=== PATIENT | male | born 1955 | race Caucasian/White ===

== ENCOUNTER → 2016-07-13 | Day surgery (SDC) | payer OTHER ==
[~2016-07-13] MED LIST: ADVIL200 M2 PO; ATORVASTATIN CA40 MG PO; NORVASC10 MG PO
--- NOTE | ~2016-07-13 | OR ---
Unit #: [id number] #: [id number] Patient: LEYLA SCHMID [id number] [address] [place], [place] [address] [id number] O MR#: [id number] NAME: LEYLA SCHMID. ROOM: Date of Procedure: 07/13/2016 Admission Date: 07/13/2016 Surgeon: Miguel Egan M.D. : 1955 Attending Physician: Miguel Egan M.D. Primary Care Physician: Melissa Perry A.P.R.N. OPERATIVE REPORT PREOPERATIVE DIAGNOSIS Colorectal cancer screening in an average-risk patient. PROCEDURES PERFORMED Colonoscopy and polypectomy. POSTOPERATIVE DIAGNOSES 1. The patient had one pedunculated and one sessile polyp in the sigmoid colon. Both were removed using snare cautery polypectomy. They were 8 mm to a centimeter each. 2. Mild sigmoid and descending colon diverticulosis. 3. Rest of the examination up to cecum was normal. The quality of the prep was excellent. RECOMMENDATIONS Follow up the results of polyp histology and consider repeat colonoscopy in 5 years. SEDATION USED MAC. DESCRIPTION OF PROCEDURE Following detailed explanation of the potential risks and complications of a colonoscopy, namely perforation, bleeding, and complication related to sedation, the patient was brought to GI lab and laid in the left lateral decubitus position. A digital rectal examination was performed, which was normal. Lubricated tip of the Olympus video colonoscope was inserted through the anus and advanced under direct vision. The scope was advanced past rectosigmoid into descending colon. Scant small diverticula were noted in this area. The scope tip was then navigated all the way up to cecum with visualization of the ileocecal valve and the appendiceal orifice. Preparation was excellent with good visualization and photodocumentation was obtained. Successive segments of the colonic mucosa were examined upon withdrawal. The patient was noted to have two polyps. The first one was sessile and second was pedunculated in the proximal and mid sigmoid colon. Both were removed using snare cautery polypectomy. They were 8 mm to 1 cm each. No additional polyps were noted. Other than the scant diverticula seen in the left side, no other abnormalities were found. The patient did not have any hemorrhoids at the anal verge. The scope was then withdrawn and the patient returned to the recovery area. He tolerated the procedure without any postprocedure complications. Unit #: [id number] #: [id number] Patient: LEYLA SCHMID Dictated by.Enrique Martinez/joann TD: 07/14/2016 01:20 JOB #: [id number] OPERATIVE REPORT Page 1 of 1 X Miguel Egan MD PROCEDURE OPERATIVE NOTE
== END | disposition home or self-care (01) ==
LOC: COPS 12:59
PROVIDERS: Internal Medicine Gastroenterology
PROC: 0DBN8ZX Excision of Sigmoid Colon, Via Natural or Artificial Opening Endoscopic, Diagnostic (ICD-10-PCS; principal; 2016-07-13 14:30)
DX: Z12.11 Encounter for screening for malignant neoplasm of colon (principal); D12.5 Benign neoplasm of sigmoid colon; I10 Essential (primary) hypertension; K57.30 Diverticulosis of large intestine without perforation or abscess without bleeding; E78.5 Hyperlipidemia, unspecified; F17.200 Nicotine dependence, unspecified, uncomplicated; Z79.1 Long term (current) use of non-steroidal anti-inflammatories (NSAID); Z88.6 Allergy status to analgesic agent
CPT/HCPCS: 88305; J2250